=== PATIENT | female | born 1990 | race Caucasian/White ===

== ENCOUNTER → 2021-07-24 | Outpatient (CLI) | payer OTHER, SELFPAY | END | disposition home or self-care (01) | LOC: LABSPEC 12:56 | PROVIDERS: Referring Provider Physician Assistant; Visit Provider Physician Assistant | DX: Z11.52 Encounter for screening for COVID-19 (principal) | CPT/HCPCS: 87635; U0005; U0003 ==

== ENCOUNTER 2024-11-11 10:51 | Day surgery (SDC) | payer BC, SELFPAY ==
--- NOTE | 2024-10-27 13:50 | HP.PCM_ITS ---
History and Physical Date of Admission: 11/11/24 HPI: The patient is a 34 year old female presenting for pre-operative visit. She is scheduled for Hysteroscopy D&C, fpossible polyp resection for heavy bleeding, thickened endometrium on 11/11/24. Procedure discussed along with risks, benefits and complications. Other alternatives discussed for management. Consent form signed? Yes. ? ? PAST MEDICAL HISTORY PAST MEDICAL HISTORYDiagnosisDate?Hypothyroidism? ? ? PAST SURGICAL HISTORY PAST SURGICAL HISTORYProcedureLateralityDate? SNGL? CURRENT MEDICATIONS Current Outpatient MedicationsMedicationSigDispenseRefill?tranexamic acid (LYSTEDA) 650 mg tabletTake 2 tablets 3 times a day as needed for heavy bleeding up to 5 days.30 tablet3?medroxyPROGESTERone (PROVERA) 10 mg tabletTake 1 tablet by mouth once daily.15 tablet0?levothyroxine (SYNTHROID) 75 mcg tabletTake 1 tablet by mouth daily before breakfast.90 tablet3?ergocalciferol 50,000 unit capsule (VITAMIN D2, DRISDOL)Take 1 tablet once weekly.12 capsule3?No current facility-administered medications for this visit. ? ? ALLERGIES: Patient has no known allergies. ? PERSONAL HISTORY: SOCIAL HISTORY Social History?Tobacco Use?Smoking status:Never?Smokeless tobacco:NeverVaping Use?Vaping status:Never UsedSubstance Use Topics?Alcohol use:Yes?Drug use:Never ? FAMILY HISTORY: FAMILY HISTORY FAMILY HISTORY ProblemRelationAge of Onset?Liver DiseaseFather??HypertensionMaternal Grandmother??DiabetesPaternal Grandmot her??HypertensionPaternal Grandmother? ? ? REVIEW OF SYMPTOMS: GENERAL: denies fevers or chills ENDOCRINOLOGY: has not been on steroids Cardiology : denies palpitations or chest pain Respiratory: denies SOB or cough Hematology: denies history of prolonged bleeding or easy bruising or VTE Allergy: Denies history of personal or family history of allergy to anesthesia ? PHYSICAL EXAMINATION: ? VITALS: Blood pressure 102/60, pulse 71, resp. rate 16, weight 67.6 kg (149 lb), last menstrual period 09/24/2024, SpO2 100%. ? GENERAL: The patient is well nourished, well hydrated in no acute distress. , The patient is oriented to time, place, and person. NECK: Supple. No lynphadenopathy, normal thyroid, no thyromegaly. LUNGS: Clear to auscultation bilaterally. no wheezes, rhonchi or rales HEART: Regular rate and rhythm, Normal heart sounds, and No murmurs or gallops ? PELVIC US 09/02/24 Uterus: LMP 07/27/2024 -Size: 5.8 x 3.1 x 3.9 cm -Orientation: Retroverted -Endometrial echo complex: Evaluation of the endometrium was adequate. The endometrium is mildly heterogeneous. The endometrial echo complex measured 1.5 cm. -Cervix: Unremarkable. -Adenomyosis assessment: There are no sonographic findings of adenomyosis. -Fibroids: There are no fibroids. Right Ovary: 3.3 x 2.1 x 3 cm Normal appearance Left Ovary: 3.4 x 1.9 x 2.4 cm Normal appearance ? ? IMPRESSION: AUB, thickened endometrium ? PLAN: The risks/benefits/alternatives and personal involved for the planned hysteroscopy D&C with possible polyp resection were reviewed with the patient. Her questions were answered to her satisfaction and she desires to proceed. Consent was signed. I reviewed with her postop instructions and expectations. ? ? I have reviewed and updated past medical and surgical history, medications and allergies Assessment & Plan Assessment/Plan (1) Abnormal uterine bleeding (AUB): (2) Endometrial thickening on ultrasound:
[2024-11-11] VITALS (7 sets, daily range): BP systolic 91–121; BP diastolic 45–77; PULSE 68–97; RESP 15–16; TEMP 36.1–36.8; O2SAT 94–100; BMI 28.3
--- NOTE | 2024-11-11 11:11 | PCM.PRE.AN2 ---
ASA Classification* ASA Classification ASA Classification: 2 Assessment & Plan Anesthesia* Anesthesia Assessment Anesthesia Assessment: Discussed sedation and/or anesthesia options, risks, benefits, and alternatives with patient/parents/legal guardian/POA. Questions invited. The patient/parents/legal guardian/POA seems to understand and agrees to proceed with anesthesia plan. Reviewed the physical assessment, medical history, allergy history and patient home medications list prior to surgery/procedure/anesthetic and documented any changes. Performed airway and anesthesia risk assessments. Anesthesia Type Anesthesia Type: MAC Anesthesia Focused Assessment* Airway Assessment Mouth opens: >3 cm Mallampati Score: II Focused Labs Anesthesia Preop lab: CBC CHEMISTRY COAG Urine Test Pending 11/11/24 11:00 11/11/24 Pre-Assessment Diagnosis/Proposed Procedure Planned Operative Procedure(s): Hysteroscopy,D&C Symphion, possible polyp resection Anesthesia History Anesthesia History - cold rolling coordinator: Anesthesia History - cold rolling coordinator Hx Hospitalization No 10/28/24 13:38 Any Problems With Anesthesia No 10/28/24 13:38 Cholinesterase deficiency No 10/28/24 13:38 You/Your Family Experience No 10/28/24 13:38 fever (hyperthermia) with Relationship Recent Exposure to Contagious Disease Does patient have nerve No 10/28/24 13:38 stimulator Patient instructed to have device shut off --Does patient have Pacemaker or ICD? When Was Last Pacemaker Check QUESTION #4 FULL TEXT: You/Your Family Experience fever (hyperthermia) with Anesthesia Last Oral Intake Last Oral intake: Last Oral Intake NPO since Meds taken in AM with sips of water? Meds patient instructed to take am of surgery PONV PONV - cold rolling coordinator: PONV - cold rolling coordinator Female Yes 10/28/24 13:38 HX of Motion Sickness Yes 10/28/24 13:38 HX of N/V After Surgery No 10/28/24 13:38 Non-Smoker Yes 10/28/24 13:38 Duration of Surgery greater No 10/28/24 13:38 than 60 minutes Number of Risk Factors 3 10/28/24 13:38 PONV Score Moderate Risk 10/28/24 13:38 Height & Weight Height & Weight: Anesthesia: Height & Weight Height 5 ft 2 in 11/10/24 10:19 Weight: 67.585 kg 11/10/24 10:19 Respiratory Assessment Respiratory Assessment - cold rolling coordinator: Respiratory Tract Infection Hx - cold rolling coordinator Hx Respiratory Tract Infection No 10/28/24 13:38 STOP Sleep Apnea STOP Sleep Apnea - cold rolling coordinator: STOP Sleep Apnea - cold rolling coordinator Hx Hypertension No 10/28/24 13:38 Hx Sleep Apnea No 10/28/24 13:38 CPAP BIPAP Do you snore loudly (louder No 10/28/24 13:38 than talking or can be heard Do you often feel tired/ No 10/28/24 13:38 fatigued/ sleepy during daytime? Has anyone observed you stop No 10/28/24 13:38 breathing during sleep? STOP Results Negative 10/28/24 13:38 QUESTION #5 FULL TEXT : Do you snore loudly (louder than talking or can be heard through closed doors)? 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 Specify any problems Hx of Preganancy in last 3 No 10/28/24 13:38 Months Nurse Filling Out Transfusion VCHRISTIN 10/28/24 13:38 & Questions: Date: 10/28/24 10/28/24 13:38 Time: 13:39 10/28/24 13:38 Patient unable to answer at this time (ie. confused, unrespo /Reproduction History /Reproductive History - cold rolling coordinator: /Reproductive Hx- cold rolling coordinator Hx Now No 10/28/24 13:38 Gestational Age (in weeks): EDC: Hx Hx Para Hx Section SAB No 10/28/24 13:38 Active Medications Active Medications: Current Medications Generic Name Dose Route Start Last Admin Trade Name Freq PRN Reason Stop Dose Admin Acetaminophen 1,000 mg 04/18/25 12:15 Acetaminophen 500 Mg Tablet PO 11/11/24 12:16 X1 ONE Ketorolac Tromethamine 30 mg 11/11/24 12:15 Ketorolac 30 Mg/Ml Syringe IV 11/11/24 12:16 X1 [facility] Medical History Thyroid disease Anemia Back pain Gastric reflux Non-smoker Encounter for screening for COVID-19 Home Medications ?Medication ?Instructions ?Recorded ?Last Taken ?Type ergocalciferol (vitamin D2) 1,250 1,250 mcg PO QWEEK 10/28/24 Unknown History mcg (50,000 unit) capsule levothyroxine 75 mcg tablet 75 mcg PO DAILY 10/28/24 11/11/24 09:00 History vit no.95-ferrous 1 tab PO DAILY 10/28/24 Unknown History fumarate 28 mg-folic acid 800 mcg tablet () Allergy/AdvReac Type Severity Reaction Status Date / Time No Known Allergies Allergy Verified 11/11/24 11:09 Surgical History Hx of section Social History Smoking Status: Never smoker Review of Systems (Anesthesia) ROS Narrative System reviewed and no additional complaints, except as documented.
[2024-11-11 11:13] LABS: Internal QC Validated? YES +Cl - CLEAR BKGD; Pregnancy, Urine Negative Negative
--- NOTE | 2024-11-11 11:16 | DCINST_ITS ---
Discharge Instructions Diet Discharge Diet: No restrictions DC O2, CPAP, BIPAP needs Home O2 Discharge instructions: No Dressing / Incision Return to work on:: 11/14/24 May shower in (days): 1 November resume sexual activity in: 1 week and 2 weeks Lifting Restrictions: none Dressing / Incision Call your doctor if your incision/area has: Sudden Increased Bleeding and Foul Smelling Discharge Call your doctor if you observe: Fever of 101 or Higher and Using more than 1 pad per hour (for 2 hrs in a row) Additional Dressing/Incision Instructions:: Take ibuprofen or naproxyn alternating with acetaminophen as needed for pain. You can use a heating pad as well. Follow Up Care Please Follow Up With: Pinky Stone MD When: 2-4 weeks or as needed. Call [phone] or send a [employer] message to make an appointment or with any concerns. Test Results: Test results from this visit will be discussed in further detail at your follow- up appointment, if applicable. Discharge Plan Admission Primary Reason for Your Visit: Hysteroscopy dilation and curettage Attending Provider: Pinky Stone Primary Care Provider: Eloina Mcconnell Instructions Print Language: Citizen Of [place] Discharge Orders/Prescriptions Prescriptions: No Action levothyroxine 75 mcg tablet 75 mcg PO DAILY ergocalciferol (vitamin D2) 1,250 mcg (50,000 unit) capsule 1,250 mcg PO QWEEK PNV cmb#95-ferrous fumarate-FA [] 28 mg iron- 800 mcg tablet 1 tab PO DAILY Disposition Disposition (needs filled in before D/C Order can be placed): Home, Self Care
[2024-11-11] MEDS: Acetaminophen 500 MG Tablet 1000 MG PO (11:38)
[2024-11-11] MEDS: Ketorolac 30 MG/ML Syringe IV (11:39)
[2024-11-11 11:51] LABS: Hematocrit 37.2 % (37-47); Hemoglobin 12.4 g/dL (12.0-15.0); Mean Corp Hgb Conc 33.3 g/dL (32-36); Mean Corpuscular Hgb 28.2 pg (27.0-32.0); Mean Corpuscular Volume 84.5 fL (81-99); Mean Platelet Vol. 10.1 fl (6.2-12.0); Platelet Count 237 K/mm3 (150-450); RBC Distribution Width CV 13.3 % (11.6-14.6); RBC Distribution Width SD 41.3 fl (35.1-43.9); White Blood Count 6.1 K/mm3 (4.4-11.0)
[2024-11-11] MEDS: Lidocaine 1% /Epi 1:100 (20ml) 20 ML Vial (12:00)
--- NOTE | 2024-11-11 12:11 | PCM.OPRPT ---
Problems Associated Problem List Diagnoses (1) Endometrial thickening on ultrasound: (2) Abnormal uterine bleeding (AUB): (3) Endometrial polyp: Operative Report (Standard) Operative Information Date of Procedure: 11/11/24 Pre-Operative Diagnosis: AUB, thickened endometrium on US, endometrial polyp Post-Operative Diagnosis: same Surgery/Procedure Performed: Hysteroscopy D&C with polyp resection manager highway: No Type of Anesthesia: MAC/Supplemental/Local RN Documented Start/Stop Times: Operation Date: 11/11/24 12:15 Case Time Into Pre-Op 11/11/24 10:58 Out of Pre-Op 11/11/24 11:42 Anesthesia Start 11/11/24 11:43 Into Room 11/11/24 11:43 Procedure Start 11/11/24 11:57 Procedure Start Time: 11:57 Procedure Stop Time: 12:07 Select all DRAINS/GRAFTS/IMPLANTS that apply: None Special Medications: none Estimated Blood Loss: 10 Fluids Replaced: 500 Specimen collected: Yes Description of specimen(s) removed: endometrial curettings and polyp Description of surgery: The patient was taken to the OR where she was prepped and draped in dorsal lithotomy position. The weighted speculum was placed in the vagina and the anterior lip of the cervix was grasped with a single-tooth tenaculum. A paracervical block was administered with 1% lidocaine with 1-100,000 epinephrine solution. The cervix was dilated serially with Hegar dilators. The Symphion hysteroscope was placed into the uterine cavity and the above findings were noted. Bilateral tubal ostia were identified. The Symphion resection device was readied and inserted. The polyp was removed in its entirety and visual D&C was done to clean out the endometrium. There were no other focal abnormalities noted in the uterus or endocervix. The instruments were removed from the vagina. The specimen was handed off and sent to pathology. All sponge and needle counts were correct. Vaginal sweep was performed by me. The patient was awakened and taken to the recovery room in stable condition. Calculated hysteroscopic fluid deficit was 650 cc of normal saline Surgical Findings: small posterior uterine fibroid, lush endometrium Complications Complications: No Admit VTE Documentation VTE Present on Admission: No VTE Mechan Device Prophylaxis: SCD's VTE Pharm Prophylaxis ordered?: No
--- NOTE | 2024-11-11 12:15 | EMB_PTH ---
PATIENT: SAUL GLEZ LOC: [facility] – [place] U#:[id number] AGE/SX: 34/F ROOM: RE11/11/[address]: Dr. Pinky Stone MD : 1990 BED: DIS: 11/11/2024 SPEC #: [id number] RECD: 11/11/24 13:42 STATUS: ADÁN REGregorio #: [id number] ELIDA: 11/11/24 12:[address]: Pinky Stone DEPT: SURGICAL PATHOLOGY RECD BY: Rangel Vazquez ENTERED: 11/11/24 13:42 SP TYPE: ENDOM BX/C JEANNETTE DR: Eloina Mcconnell, [place]-C Tissues: A - Endometrium, NOS Procedures: Surgery Specimen Level IV HEADER OPERATION: Hysteroscopy, D&C, possible polyp resection PRE-OP DIAGNOSIS: Abnormal uterine bleeding, endometrial thickening on ultrasound TISSUE SUBMITTED: A- Endometrial curettings and polyp MICROSCOPIC DIAGNOSIS A. Uterus, endometrial lining, dilation and curettage: * Proliferative endometrium, mildly disordered. * Focal prominent vascularity suggestive of endometrial polyp, benign. * Fragments of unremarkable superficial myometrium. MICROSCOPIC DESCRIPTION Slides are reviewed. GROSS DESCRIPTION A. Received in formalin in a container labeled with the patient's name, date of , and endometrial curettings and polyp are multiple frank-pink fragments of soft tissue admixed with a scant amount of blood and mucus measuring 2.8 x 1.5 x 0.6 cm in aggregate. Submitted in toto in A1-2. [facility] 11/16/2024 CPT:[id number]
--- NOTE | 2024-11-11 12:40 | PCM.POST.ANE ---
Anesthesia: Postop Eval I Current Vital Signs Temperature: 97 F Pulse Rate: 77 Blood Pressure: 106/77 Respiratory Rate: 15 Pulse Ox: 94 Oxygen Delivery Method: Room Air Assessment Airway patent: Yes Spontaneous unlabored respirations: Yes Mental status: Awake and Calm nausea: No Vomiting: No Anesthesia Complication: No Fluid Hydration Crystalloid volume administer (ml): 800 Total IV fluid infused: 800 Progress Note Anesthesia document: Postop Eval 1 completed: Yes
--- NOTE | 2024-11-11 13:50 | POSTOPAN2_ITS ---
Anesthesia Postop Eval I Sum Postop Eval Completion status Anesthesia document: Postop Eval 1 completed: Yes Anesthesia Postop Eval I Summary Anesthesia Postop Eval I Summary: Anesthesia Postop Eval I: Assessment Summary Airway patent Yes 11/11/24 12:41 FUR GLAZER.MDOT Spontaneous unlabored Yes 11/11/24 12:41 FUR GLAZER.MDOT respirations Mental status Awake,Calm 11/11/24 12:41 FUR GLAZER.MDOT nausea No 11/11/24 12:41 FUR GLAZER.MDOT Vomiting No 11/11/24 12:41 FUR GLAZER.MDOT Anesthesia Postop Eval I: Fluid Summary Crystalloid volume administer 800 11/11/24 12:41 FUR GLAZER.MDOT (ml) Colloids volume administered ( ml) Blood Product volume administered (ml) Total IV fluid infused 800 11/11/24 12:41 FUR GLAZER.MDOT Anesthesia Postop Eval I: Summary Notes Anesthesia Complication No 11/11/24 12:41 FUR GLAZER.MDOT Anesthesia Complication Comment: Post-operative progress note Anesthesia: Postop Eval II Evaluation Mental status: Awake Pain Level: 0 nausea: No Vomiting: No
--- NOTE | 2024-11-11 13:50 | PCM.POSTANE2 ---
Anesthesia Postop Eval I Sum Postop Eval Completion status Anesthesia document: Postop Eval 1 completed: Yes Anesthesia Postop Eval I Summary Anesthesia Postop Eval I Summary: Anesthesia Postop Eval I: Assessment Summary Airway patent Yes 11/11/24 12:41 CHAIN MORTISER OPERATOR.MDOT Spontaneous unlabored Yes 11/11/24 12:41 CHAIN MORTISER OPERATOR.MDOT respirations Mental status Awake,Calm 11/11/24 12:41 CHAIN MORTISER OPERATOR.MDOT nausea No 11/11/24 12:41 CHAIN MORTISER OPERATOR.MDOT Vomiting No 11/11/24 12:41 CHAIN MORTISER OPERATOR.MDOT Anesthesia Postop Eval I: Fluid Summary Crystalloid volume administer 800 11/11/24 12:41 CHAIN MORTISER OPERATOR.MDOT (ml) Colloids volume administered ( ml) Blood Product volume administered (ml) Total IV fluid infused 800 11/11/24 12:41 CHAIN MORTISER OPERATOR.MDOT Anesthesia Postop Eval I: Summary Notes Anesthesia Complication No 11/11/24 12:41 CHAIN MORTISER OPERATOR.MDOT Anesthesia Complication Comment: Post-operative progress note Anesthesia: Postop Eval II Evaluation Mental status: Awake Pain Level: 0 nausea: No Vomiting: No
== END 2024-11-11 14:06 | disposition home or self-care (01) ==
LOC: SDC 10:53 → AC 10:55
PROVIDERS: PCP Nurse Practitioner Family; Referring Provider Obstetrics & Gynecology; Visit Provider Obstetrics & Gynecology
PROC: 0UB98ZZ Excision of Uterus, Via Natural or Artificial Opening Endoscopic (ICD-10-PCS; CPT 58558; principal; 2024-11-11 12:00)
DX: N93.9 Abnormal uterine and vaginal bleeding, unspecified (principal); D25.9 Leiomyoma of uterus, unspecified; Z79.890 Hormone replacement therapy; N84.0 Polyp of corpus uteri; E03.9 Hypothyroidism, unspecified; R93.89 Abnormal findings on diagnostic imaging of other specified body structures
CPT/HCPCS: 58558; 00952; 81025; 85027; 88305; A4216